=== PATIENT | female | born 1990 | race American Indian/Alaskan Native ===

== ENCOUNTER 2017-04-09 19:32 | Emergency (ER) | payer OTHER ==
[2017-04-09 19:39] VITALS: BP 108/59
[2017-04-09] MEDS ORDERED: MOTRIN PO ONE (20:38)
[2017-04-09] MEDS ORDERED: BACTRIM DS PO ONE (20:39)
--- NOTE | 2017-04-09 21:02 | Emergency Department Report ---
ED ENT HPI - General Chief complaint: Earache Stated complaint: KNOT ON EAR Time Seen by Provider: 04/09/17 20:06 Source: patient Mode of arrival: Ambulatory Limitations: No Limitations - History of Present Illness Initial comments: 26F PMH none p/w c/o 1 week of left ear pain. c/o small swollen area directly behind left ear. Denies tinnitus, no fever or chills, no nausea or vomiting. MD complaint: ear pain Onset/Timin -: week(s) Location: L ear Severity: moderate Severity scale (0 -10): 6 Quality: aching Consistency: constant Improves with: none Worsens with: none - Related Data Previous Rx's Medication Instructions Recorded Last Taken Type Hydrocortisone 1% [Hydrocortisone 1 applicatio TP TID #1 tube 07/16/14 Unknown Rx 1% CREAM] Prednisone 20 mg PO DAILY #5 tablet 07/16/14 Unknown Rx hydrOXYzine HCL [Atarax] 25 mg PO Q6HR PRN #20 tablet 07/16/14 Unknown Rx Cephalexin [Keflex] 500 mg PO BID #14 capsule 04/09/17 Unknown Rx Ibuprofen [Motrin] 800 mg PO Q8HR PRN #30 tablet 04/09/17 Unknown Rx Sulfamethoxazole/Trimethoprim 1 each PO BID #14 tablet 04/09/17 Unknown Rx [Bactrim DS TAB] Allergies Allergy/AdvReac Type Severity Reaction Status Date / Time No Known Allergies Allergy Verified 04/09/17 19:37 ED Dental HPI - General Chief complaint: Earache Stated complaint: KNOT ON EAR Time Seen by Provider: 04/09/17 20:06 Source: patient Mode of arrival: Ambulatory Limitations: No Limitations - Related Data Previous Rx's Medication Instructions Recorded Last Taken Type Hydrocortisone 1% [Hydrocortisone 1 applicatio TP TID #1 tube 07/16/14 Unknown Rx 1% CREAM] Prednisone 20 mg PO DAILY #5 tablet 07/16/14 Unknown Rx hydrOXYzine HCL [Atarax] 25 mg PO Q6HR PRN #20 tablet 07/16/14 Unknown Rx Cephalexin [Keflex] 500 mg PO BID #14 capsule 04/09/17 Unknown Rx Ibuprofen [Motrin] 800 mg PO Q8HR PRN #30 tablet 04/09/17 Unknown Rx Sulfamethoxazole/Trimethoprim 1 each PO BID #14 tablet 04/09/17 Unknown Rx [Bactrim DS TAB] Allergies Allergy/AdvReac Type Severity Reaction Status Date / Time No Known Allergies Allergy Verified 04/09/17 19:37 ED Review of Systems ROS: Stated complaint: KNOT ON EAR Other details as noted in HPI Constitutional: denies: chills, fever Eyes: denies: eye pain, eye discharge, vision change ENT: ear pain (pain behind left ear, small amount of swelling). denies: throat pain Respiratory: denies: cough, shortness of breath, wheezing Cardiovascular: denies: chest pain, palpitations Endocrine: no symptoms reported Gastrointestinal: denies: abdominal pain, nausea, diarrhea Genitourinary: denies: urgency, dysuria, discharge Musculoskeletal: denies: back pain, joint swelling, arthralgia Skin: denies: rash, lesions Neurological: denies: headache, weakness, paresthesias Psychiatric: denies: anxiety, depression Hematological/Lymphatic: denies: easy bleeding, easy bruising ED Past Medical Hx - Past Medical History Previous Medical History?: No - Surgical History Past Surgical History?: No - Social History Smoking Status: Current Every Day Smoker Substance Use Type: Alcohol, Marijuana - Medications Home Medications: Home Medications Medication Instructions Recorded Confirmed Last Taken Type Hydrocortisone 1% [Hydrocortisone 1 applicatio TP TID #1 tube 07/16/14 Unknown Rx 1% CREAM] Prednisone 20 mg PO DAILY #5 tablet 07/16/14 Unknown Rx hydrOXYzine HCL [Atarax] 25 mg PO Q6HR PRN #20 tablet 07/16/14 Unknown Rx Cephalexin [Keflex] 500 mg PO BID #14 capsule 04/09/17 Unknown Rx Ibuprofen [Motrin] 800 mg PO Q8HR PRN #30 tablet 04/09/17 Unknown Rx Sulfamethoxazole/Trimethoprim 1 each PO BID #14 tablet 04/09/17 Unknown Rx [Bactrim DS TAB] ED Physical Exam - General Limitations: No Limitations General appearance: alert, in no apparent distress - Head Head exam: Present: atraumatic, normocephalic - Eye Eye exam: Present: normal appearance, PERRL, EOMI - ENT ENT exam: Present: mucous membranes moist, other (small abscess approximately 2 cm in length directly behind left ear and postauricular area. No clinical mastoid tenderness on exam. Otoscopic exam bilateral ears are normal no involvement of tympanic membrane no effusion) - Expanded ENT Exam Expanded Mouth exam: Present: normal external inspection Teeth exam: Present: normal inspection Throat exam: Positive: normal inspection - Neck Neck exam: Present: normal inspection, full ROM - Respiratory Respiratory exam: Present: normal lung sounds bilaterally. Absent: respiratory distress - Cardiovascular Cardiovascular Exam: Present: regular rate, normal rhythm. Absent: systolic murmur, diastolic murmur, rubs, gallop - GI/Abdominal GI/Abdominal exam: Present: soft, normal bowel sounds - Extremities Exam Extremities exam: Present: normal inspection - Back Exam Back exam: Present: normal inspection - Neurological Exam Neurological exam: Present: alert, oriented X3, CN II-XII intact, normal gait - Psychiatric Psychiatric exam: Present: normal affect, normal mood - Skin Skin exam: Present: warm, dry, intact, normal color. Absent: rash ED Course Vital Signs 04/09/17 19:37 Temperature 99.7 F H Pulse Rate 73 Respiratory 18 Rate Blood Pressure 108/59 O2 Sat by Pulse 100 Oximetry - I & D Left Ear Type of Procedure: Simple Site: small abscess behind left ear less than 2cm Blade Size: 11 I & D Procedure: betadine prep Progress: 2 ccs of lidocaine 1% without epi applied to area, good anesthesia achieved, small incision made less than 1 cm , small amount of purulent drainage, 1/4 inch of iodoform gauze 2 inches packed in wound, tolerated well ED Medical Decision Making - Medical Decision Making A/P: Abscess 1-abscess incised and drained, I discussed case with attending and will also examine the patient 2-Motrin when necessary, warm compresses 3-bactrim and keflex bid 7 days, 4- I advised pt to return to ED for fever, chills, nausea, vomiting, worsened pain or reaccumulation of abscess Critical care attestation.: If time is entered above; I have spent that time in minutes in the direct care of this critically ill patient, excluding procedure time. ED Disposition Clinical Impression: Abscess Disposition: DC- TO HOME OR SELFCARE Is pt being admited?: No Does the pt Need Aspirin: No Condition: Stable Instructions: Abscess (ED), Abscess Incision and Drainage (ED) Additional Instructions: Returns to the ED in 48-72 hours for wound check and packing removal Prescriptions: Cephalexin [Keflex] 500 mg PO BID #14 capsule Ibuprofen [Motrin] 800 mg PO Q8HR PRN #30 tablet PRN Reason: Pain Sulfamethoxazole/Trimethoprim [Bactrim DS TAB] 1 each PO BID #14 tablet Referrals: [facility] [Provider Group] - 3-5 Days [facility] [Outside] - 3-5 Days Forms: Work/School Release Form(ED) Time of Disposition: 21:16
== END 2017-04-09 21:20 | disposition home or self-care (01) ==
LOC: ED 19:32
DX: H60.02 Abscess of left external ear (principal); F17.200 Nicotine dependence, unspecified, uncomplicated; F12.10 Cannabis abuse, uncomplicated
CPT/HCPCS: 87116

== ENCOUNTER 2017-07-01 12:01 | Emergency (ER) | payer SELFPAY ==
[2017-07-01 12:44] VITALS: BP 140/77
== END 2017-07-01 15:00 | disposition left against medical advice (07) ==
LOC: ED 12:01
DX: J02.9 Acute pharyngitis, unspecified (principal); R50.9 Fever, unspecified; R51 Headache; Z53.21 Procedure and treatment not carried out due to patient leaving prior to being seen by health care provider

== ENCOUNTER 2020-02-15 15:27 | Emergency (ER) | payer SELFPAY ==
[2020-02-15 15:37] VITALS: BP 102/58
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
== END 2020-02-15 17:39 | disposition home or self-care (01) ==
LOC: ED 15:27
DX: S46.812A Strain of other muscles, fascia and tendons at shoulder and upper arm level, left arm, initial encounter (principal); S16.1XXA Strain of muscle, fascia and tendon at neck level, initial encounter; M25.532 Pain in left wrist; F17.200 Nicotine dependence, unspecified, uncomplicated; Z79.899 Other long term (current) drug therapy; V89.2XXA Person injured in unspecified motor-vehicle accident, traffic, initial encounter; Y93.89 Activity, other specified; Y92.410 Unspecified street and highway as the place of occurrence of the external cause; Y99.8 Other external cause status
CPT/HCPCS: 99282

== ENCOUNTER 2020-04-07 14:02 | Emergency (ER) | payer OTHER ==
[2020-04-07 15:49] VITALS: BP 121/82
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
== END 2020-04-07 16:35 | disposition home or self-care (01) ==
LOC: ED 14:02
DX: S93.401A Sprain of unspecified ligament of right ankle, initial encounter (principal); Z79.1 Long term (current) use of non-steroidal anti-inflammatories (NSAID); Z79.899 Other long term (current) drug therapy; V49.69XA Unspecified car occupant injured in collision with other motor vehicles in traffic accident, initial encounter; Y93.89 Activity, other specified; Y92.410 Unspecified street and highway as the place of occurrence of the external cause; Y99.8 Other external cause status